=== PATIENT | female | born 1995 | race Caucasian/White ===

== ENCOUNTER 2017-05-30 17:32 | Emergency (ER) | payer BC, MEDICAID ==
[2017-05-30] MEDS ORDERED: Sodium Chloride 0.9% 10 ML Syringe FLUSH PRN (18:35)
[2017-05-30] MEDS ORDERED: Lactated Ringers 1,000 ML IV ONE (18:35)
--- NOTE | 2017-05-30 20:48 | EDM.PDOC ---
ED HPI GENERAL MEDICAL PROBLEM - General Chief Complaint: General Stated Complaint: PASSED OUT, 13 WEEKS PREG Time Seen by Provider: 05/30/17 18:15 Source of Information: Reports: Patient History Limitations: Reports: No Limitations - History of Present Illness INITIAL COMMENTS - FREE TEXT/NARRATIVE: 21 year old female presents for evaluation and treatment following a syncopal episode. Syncopal episode occurred about 2 hours prior to arrival in the ER. This episode was witnessed by her significant other. He states that was passed put for about 5 minutes. Significant other reports when she came to she was "shaky" and "twitchy". He questions if she had a seizure. Patient reports she remembers feeling lightheaded prior to the syncopal episode. She was talking to her significant other at the time. She felt lightheaded and noted increased salivation and vision changes prior to the episode. She did not hit her head as he was able to guide her to the ground. She states while she was "out" she could hear what was going on around her but could not respond. She reports memory loss associated with the event. States this has happened to her on several occasions. Last incident was in August. Reports after the August episode her speech was different for a couple of days, this resolved on its own. She has never seen neurology for the syncopal episodes. She states she has been having a migraine the last few days and felt hot/ feverish but has not taken her temp. No chest pain or shortness of breath. Patient is approximately 13 weeks . She is a . Reports she did have syncopal episodes with her previous . She recently relocated to [place] from [place]. She has seen OB in [place] and has a ob in [place] picked out but has not yet seen her. Reports she had an early Ob ultrasound in [place] due to having complications with her first . Reports she dilated around 24 wks with her first and was on bed rest. Baby was born full term. With this has had a little bit of cramping but no vaginal bleeding. She has been nauseated and has vomiting about 5 times a day. She has been attempting to control this with zofran from her previous . Also reports a decreased appetite. She is unsure of her blood type but states she has never received rhogram before. Generalized Pain Score (Numeric/FACES): 4 - Related Data Allergies Allergy/AdvReac Type Severity Reaction Status Date / Time acetaminophen [From Vicodin] Allergy Hives Verified 05/30/17 17:56 hydrocodone [From Vicodin] Allergy Hives Verified 05/30/17 17:56 morphine Allergy Hives Verified 05/30/17 17:56 Home Meds: Home Meds . [No Known Home Meds] 05/30/17 [History] Past Medical History HEENT History: Reports: None Cardiovascular History: Reports: Arrhythmia Gastrointestinal History: Reports: None Genitourinary History: Reports: Renal Calculus [employer] History: Reports: Neurological History: Reports: Migraines, Seizure Other Neuro History: pediatric seizures Psychiatric History: Reports: Anxiety, Dementia - Past Surgical History HEENT Surgical History: Reports: Adenoidectomy, Tonsillectomy Cardiovascular Surgical History: Reports: None GI Surgical History: Reports: Cholecystectomy Female Surgical History: Reports: Kidney stone extraction, Other (See Below) Other Female Surgeries/Procedures: shockwave lithotripsy Neurological Surgical History: Reports: None Social & Family History - Family History Family Medical History: Noncontributory - Tobacco Use Smoking Status *Q: Never Smoker Second Hand Smoke Exposure: No - Caffeine Use Caffeine Use: Reports: None - Recreational Drug Use Recreational Drug Use: No ED ROS GENERAL - Review of Systems Review Of Systems: See Below Constitutional: Reports: Fever (feels hot and feverish but has not taken a temp) HEENT: Reports: Vision Change (prior to syncopal episode "tunnel vision") Respiratory: Denies: Shortness of Breath Cardiovascular: Denies: Chest Pain GI/Abdominal: Reports: Abdominal Pain (reports some minor lower abdominal cramping), Nausea, Vomiting : Reports: Other (no vaginal bleeding). Denies: Dysuria Neurological: Reports: Headache (x3 days), Syncope, Other (amnesia with syncopal episode) ED EXAM, GENERAL - Physical Exam Exam: See Below Exam Limited By: No Limitations General Appearance: Alert, WD/WN, No Apparent Distress Eye Exam: Bilateral Eye: EOMI, Normal Inspection, PERRL Ears: Normal External Exam Nose: Normal Inspection Throat/Mouth: Normal Inspection, Normal Lips, Normal Voice, No Airway Compromise Head: Atraumatic, Normocephalic Neck: Normal Inspection, Supple, Non-Tender, Full Range of Motion Respiratory/Chest: No Respiratory Distress, Lungs Clear, Normal Breath Sounds Cardiovascular: Normal Peripheral Pulses, Regular Rate, Rhythm, No Murmur GI/Abdominal: Normal Bowel Sounds, Soft, Non-Tender (Female) Exam: Other ( heart tones in the 140s) Neurological: Alert, Oriented, CN II-XII Intact, Normal Cognition, Normal Gait, Other (GCS 15). No: Confused, Disoriented, Slow to Respond Psychiatric: Normal Affect, Normal Mood Skin Exam: Warm, Dry, Normal Color Course - Vital Signs Last Recorded V/S: Last Vital Signs Temp 36.3 C 05/30/17 17:56 Pulse 73 05/30/17 21:00 Resp 16 05/30/17 21:00 BP 103/58 L 05/30/17 21:00 Pulse Ox 100 05/30/17 21:00 - Orders/Labs/Meds Labs: Laboratory Tests 05/30/17 05/30/17 05/30/17 Range/Units 18:38 18:38 19:00 WBC 9.02 (3.98-10.04) K/mm3 RBC 4.42 (3.98-5.22) M/mm3 Hgb 13.5 (11.2-15.7) gm/L Hct 39.1 (34.1-44.9) % MCV 88.5 (79.4-94.8) fl MCH 30.5 (25.6-32.2) pg MCHC 34.5 (32.2-35.5) g/dl RDW Std Deviation 41.3 (36.4-46.3) fL Plt Count 167 L (182-369) K/mm3 MPV 10.6 (9.4-12.3) fl Neut % (Auto) 81.1 H (34.0-71.1) % Lymph % (Auto) 13.0 L (19.3-51.7) % [place] % (Auto) 5.1 (4.7-12.5) % Eos % (Auto) 0.6 L (0.7-5.8) Baso % (Auto) 0.1 (0.1-1.2) % Neut # (Auto) 7.32 H (1.56-6.13) K/mm3 Lymph # (Auto) 1.17 L (1.18-3.74) K/mm3 [place] # (Auto) 0.46 H (0.24-0.36) K/mm3 Eos # (Auto) 0.05 (0.04-0.36) K/mm3 Baso # (Auto) 0.01 (0.01-0.08) K/mm3 Sodium 137 (136-145) mEq/L Potassium 3.7 (3.5-5.1) mEq/L Chloride 103 (98-107) mEq/L Carbon Dioxide 23 (21-32) mEq/L Anion Gap 14.7 (5-15) BUN 6 L (7-18) mg/dL Creatinine 0.7 (0.55-1.02) mg/dL Est Cr Clr Drug Dosing 95.93 mL/min Estimated GFR (MDRD) > 60 (>60) mL/min BUN/Creatinine Ratio 8.6 L (14-18) Glucose 90 (74-106) mg/dL Calcium 9.6 (8.5-10.1) mg/dL Total Bilirubin 0.2 (0.2-1.0) mg/dL AST 14 L (15-37) U/L ALT 17 (14-59) U/L Alkaline Phosphatase 67 (46-116) U/L Total Protein 7.5 (6.4-8.2) g/dl Albumin 3.8 (3.4-5.0) g/dl Globulin 3.7 gm/dL Albumin/Globulin Ratio 1.0 (1-2) Urine Color Yellow (Yellow) Urine Appearance Clear (Clear) Urine pH 6.0 (5.0-8.0) Ur Specific [place] > or = 1.030 (1.005-1.030) Urine Protein Negative (Negative) Urine Glucose (UA) Negative (Negative) Urine Ketones Negative (Negative) Urine Occult Blood Negative (Negative) Urine Nitrite Negative (Negative) Urine Bilirubin Negative (Negative) Urine Urobilinogen 1.0 (0.2-1.0) Ur Leukocyte Esterase Negative (Negative) Urine RBC 0-5 (0-5) /hpf Urine WBC 0-5 (0-5) /hpf Ur Epithelial Cells 0-5 (0-5) /hpf Urine Bacteria Few (FEW) /hpf Urine Mucus Few (FEW) /hpf Meds: Medications Discontinued Medications Generic Name Dose Route Start Last Admin Trade Name Freq PRN Reason Stop Dose Admin Lactated Ringer's 1,000 mls @ 999 mls/hr 05/30/17 18:35 05/30/17 18:42 Ringers, Lactated IV 05/30/17 19:35 999 mls/hr .BOLUS ONE Administration Sodium Chloride 10 ml 05/30/17 18:35 05/30/17 18:43 Saline Flush FLUSH 10 ml ASDIRECTED PRN Administration Keep Vein Open - Re-Assessments/Exams Free Text/Narrative Re-Assessment/Exam: 05/30/17 20:44 Labs returned. I reviewed the lab results with the patient. heart tones in the 140s- 150s. She is not orthostatic. I feel this is likely a vasovagal episode given her history and PE. I do not see any reason for imaging today. I will discharge her home. Discharge instructions as documented. Departure - Departure Time of Disposition: 20:44 Disposition: Home, Self-Care 01 Condition: Good Clinical Impression: , Vasovagal episode - Discharge Information Instructions: Vasovagal Syncope, Adult Referrals: PCP,None [Primary Care Provider] - Kelsi Rodriguez MD [Physician] - Forms: ED Department Discharge Additional Instructions: Continue with your current plan of care and see OB as planned. make sure your ar drinking plenty of fluids. Drink at least half of her body weight and ounces of fluid every day. For you this is at least 60 ounces of fluid a day. Make sure when you are standing for prolonged periods times bend your knee but try to avoid standing for prolonged periods. Also be careful in the heat. Make sure you drink fluids and avoid heat if possible. Topical Phenergan given as needed for nausea. Apply a small amount to the wrist 4 times a day. This medication needs to be specially compounded. The compounding pharmacy is [facility]. Please call [phone] for any questions. Please return to the ER if your symptoms change or worsen.
[2017-05-30 21:04] VITALS: BP 103/58
== END 2017-05-30 21:00 | disposition home or self-care (01) ==
LOC: JD.ED 17:32
DX: O99.89 Other specified diseases and conditions complicating pregnancy, childbirth and the puerperium (principal); R55 Syncope and collapse; O99.351 Diseases of the nervous system complicating pregnancy, first trimester; F03.90 Unspecified dementia, unspecified severity, without behavioral disturbance, psychotic disturbance, mood disturbance, and anxiety; O99.341 Other mental disorders complicating pregnancy, first trimester; F41.9 Anxiety disorder, unspecified; Z3A.13 13 weeks gestation of pregnancy; Z88.5 Allergy status to narcotic agent; Z87.442 Personal history of urinary calculi; Z90.49 Acquired absence of other specified parts of digestive tract; Z98.890 Other specified postprocedural states
CPT/HCPCS: 36415; 80053; 81001; 85025; 96360; 99284; J7050; J7120; 99283

== ENCOUNTER 2017-11-30 06:39 | Inpatient (IN) | payer MEDICAID ==
[2017-11-30] MEDS ORDERED: Lactated Ringers 1,000 ML ONE (07:32)
[2017-11-30] MEDS ORDERED: Sodium Chloride 0.9% 10 ML Syringe FLUSH PRN (07:33)
[2017-11-30] MEDS ORDERED: Ondansetron 4 MG/2 ML SDV IVPUSH PRN (07:33)
[2017-11-30] MEDS ORDERED: Ampicillin 2 GM in Sodium Chloride 0.9% 100 ML IV ONE (07:33)
[2017-11-30] MEDS ORDERED: Nalbuphine 20 MG/1 ML Amp IVPUSH PRN (07:33)
[2017-11-30] MEDS: Lactated Ringers 1,000 ML IV SCH ×2 (07:38→12:38)
[2017-11-30] MEDS ORDERED: Oxytocin/Lactated Ringers 10 UNIT/1,000 ML BAG IV SCH ×2 (07:45)
[2017-11-30] MEDS: Ampicillin 1 GM in Sodium Chloride 0.9% 100 ML IV SCH ×2 (11:24→16:38)
[2017-11-30] MEDS ORDERED: diphenhydrAMINE 50 MG/ML SDV IVPUSH PRN (11:34)
[2017-11-30] MEDS ORDERED: fentaNYL 100 MCG/2 ML SDV EPIDUR PRN (11:34)
[2017-11-30] MEDS ORDERED: ePHEDrine 50 MG/ML SDV IVPUSH PRN (11:34)
--- NOTE | 2017-11-30 11:41 | PCM.PREANE ---
Preanesthetic Assessment - Anesthesia/Transfusion/Family Hx Anesthesia History: Prior Anesthesia Without Reaction Family History of Anesthesia Reaction: No Transfusion History: No Prior Transfusion(s) Intubation History: Unknown - Review of Systems General: No Symptoms Pulmonary: No Symptoms Cardiovascular: No Symptoms Gastrointestinal: No Symptoms Neurological: No Symptoms Other: Reports: None - Physical Assessment NPO Status Date: 11/30/17 NPO Status Time: 09:00 Pulse: 83 Respiratory Rate: 18 Blood Pressure: 135/95 Vital Signs: Last Vital Signs Temp 36.8 C 11/30/17 07:19 Pulse 81 11/30/17 07:19 Resp 18 11/30/17 07:19 BP 123/92 H 11/30/17 07:19 Pulse Ox Height: 1.55 m Weight: 74.253 kg ASA Class: 2 Mental Status: Alert & Oriented x3 Airway Class: Mallampati = 1 Dentition: Reports: Normal Dentition Thyro-Mental Finger Breadths: 3 Mouth Opening Finger Breadths: 5 ROM/Head Extension: Full Lungs: Clear to Auscultation, Normal Respiratory Effort Cardiovascular: Regular Rate, Regular Rhythm - Lab Values: Laboratory Last Values WBC 9.66 K/mm3 (3.98-10.04) 11/30/17 08:10 RBC 3.78 M/mm3 (3.98-5.22) L 11/30/17 08:10 Hgb 11.1 gm/L (11.2-15.7) L 11/30/17 08:10 Hct 33.4 % (34.1-44.9) L 11/30/17 08:10 MCV 88.4 fl (79.4-94.8) 11/30/17 08:10 MCH 29.4 pg (25.6-32.2) 11/30/17 08:10 MCHC 33.2 g/dl (32.2-35.5) 11/30/17 08:10 RDW Std Deviation 40.8 fL (36.4-46.3) 11/30/17 08:10 Plt Count 135 K/mm3 (182-369) L 11/30/17 08:10 MPV 11.7 fl (9.4-12.3) 11/30/17 08:10 Blood Type O POSITIVE 11/30/17 08:10 Gel Antibody Screen Negative 11/30/17 08:10 - Allergies Allergies/Adverse Reactions: Allergies Allergy/AdvReac Type Severity Reaction Status Date / Time hydrocodone [From Vicodin] Allergy Hives Verified 11/30/17 07:32 morphine Allergy Hives Verified 11/30/17 07:32 - Blood Blood Available: Yes Product(s) Available: PRBC - Acknowledgements Anesthesia Type Planned: Epidural Pt an Appropriate Candidate for the Planned Anesthesia: Yes Alternatives and Risks of Anesthesia Discussed w Pt/Guardian: Yes Pt/Guardian Understands and Agrees with Anesthesia Plan: Yes PreAnesthesia Questionnaire HEENT History: Reports: None Cardiovascular History: Reports: Arrhythmia (? sinus arrhythmia, history of syncope with this being watched by cardiology) Gastrointestinal History: Reports: None Genitourinary History: Reports: Renal Calculus [employer] History: Reports: (39 weeks) : 2 Para: 1 Neurological History: Reports: Seizure (when 2 years old, not on meds currently) Other Neuro History: pediatric seizures Psychiatric History: Reports: Anxiety, Depression - Past Surgical History HEENT Surgical History: Reports: Adenoidectomy, Tonsillectomy Cardiovascular Surgical History: Reports: None GI Surgical History: Reports: Cholecystectomy Female Surgical History: Reports: Kidney stone extraction, Other (See Below) Other Female Surgeries/Procedures: shockwave lithotripsy - SUBSTANCE USE Smoking Status *Q: Never Smoker Second Hand Smoke Exposure: Yes Recreational Drug Use History: No - HOME MEDS Home Medications: Home Meds Vits #93/Iron Fum/FA [ Formula Tablet] 11/30/17 [History] Sertraline [Zoloft] 50 mg PO BEDTIME 11/30/17 [History] - CURRENT (IN HOUSE) MEDS Current Meds: Current Medications Diphenhydramine HCl (Benadryl) 25 mg IVPUSH Q6H PRN PRN Reason: pruritis Ephedrine Sulfate (Ephedrine Sulfate) 5 mg IVPUSH ASDIRECTED PRN PRN Reason: Hypotension Fentanyl (Sublimaze) 100 mcg EPIDUR Q3H PRN PRN Reason: Pain Fentanyl/Bupivacaine HCl (Fentanyl/Bupivacaine/Ns 2 Mcg-0.125% 100 Ml) 100 ml EPIDUR ASDIRECTED MORALES Ampicillin Sodium 1 gm/ Sodium (Chloride) 100 mls @ 200 mls/hr IV Q4H [facility] Last Admin: 11/30/17 11:24 Dose: 200 mls/hr Lactated Ringer's (Ringers, Lactated) 1,000 mls @ 40 mls/hr IV ASDIRECTED MORALES Last Infusion: 11/30/17 08:03 Dose: 40 mls/hr Oxytocin/Lactated Ringer's (Pitocin In Lr 10 Units/1,000 Ml) 10 unit in 1,000 mls @ 12 mls/hr IV TITRATE MORALES; 2 MUNITS/MIN PRN Reason: Protocol Last Titration: 11/30/17 10:25 Dose: 6 munits/min, 36 mls/hr Oxytocin/Lactated Ringer's (Pitocin In Lr 10 Units/1,000 Ml) 10 unit in 1,000 mls @ 500 mls/hr IV .CONTINUOUS MORALES Nalbuphine HCl (Nubain) 10 mg IVPUSH Q2H PRN PRN Reason: Pain (moderate 4-6) Ondansetron HCl (Zofran) 4 mg IVPUSH Q4H PRN PRN Reason: Nausea/Vomiting Sodium Chloride (Saline Flush) 10 ml FLUSH ASDIRECTED PRN PRN Reason: Keep Vein Open Discontinued Medications Lactated Ringer's (Ringers, Lactated) Confirm Administered Dose 1,000 mls @ as directed .ROUTE .STK-MED ONE Stop: 11/30/17 07:33 Last Admin: 11/30/17 07:50 Dose: Not Given Ampicillin Sodium 2 gm/ Sodium (Chloride) 100 mls @ 200 mls/hr IV ONETIME ONE Stop: 11/30/17 08:02 Last Admin: 11/30/17 07:38 Dose: 200 mls/hr
[2017-11-30] MEDS ORDERED: Bupivacaine/fentaNYL/NS 100 ML Bag EPIDUR SCH (11:45)
--- NOTE | 2017-11-30 13:42 | PCM.LDHP ---
L&D History of Present Illness - General Date of Service: 11/30/17 Admit Problem/Dx: Patient Status Order with Admit Dx/Problem 11/30/17 07:34 Patient Status [ADT] Routine Admission Diagnosis/Problem Admission Diagnosis/Problem Normal Source of Information: Patient History Limitations: Reports: No Limitations - History of Present Illness Introduction:: Patient is a 22-year-old 001 at 39-0/7 weeks gestation who presents for induction of labor due to living about 1.5 hours from the hospital. Doing well since last seen. Notes good movement. No signs or symptoms of labor Pain Score: 10 - Related Data Allergies/Adverse Reactions: Allergies Allergy/AdvReac Type Severity Reaction Status Date / Time hydrocodone [From Vicodin] Allergy Hives Verified 11/30/17 07:32 morphine Allergy Hives Verified 11/30/17 07:32 Home Medications: Home Meds Vits #93/Iron Fum/FA [ Formula Tablet] 11/30/17 [History] Sertraline [Zoloft] 50 mg PO BEDTIME 11/30/17 [History] Past Medical History Genitourinary History: Reports: Renal Calculus [employer] History: Reports: : 2 Para: 1 LMP (Approximate): Neurological History: Reports: Seizure (when 2 years old, not on meds currently) Other Neuro History: pediatric seizures Psychiatric History: Reports: Anxiety, Depression - Past Surgical History HEENT Surgical History: Reports: Adenoidectomy, Tonsillectomy GI Surgical History: Reports: Cholecystectomy Female Surgical History: Reports: Kidney stone extraction, Other (See Below) Other Female Surgeries/Procedures: shockwave lithotripsy Social & Family History - Family History Family Medical History: Noncontributory - Tobacco Use Smoking Status *Q: Never Smoker Second Hand Smoke Exposure: Yes - Caffeine Use Caffeine Use: Reports: None - Alcohol Use Alcohol Use History: No - Recreational Drug Use Recreational Drug Use: No H&P Review of Systems - Review of Systems: Review Of Systems: See Below General: Reports: No Symptoms HEENT: Reports: No Symptoms Pulmonary: Reports: No Symptoms Cardiovascular: Reports: No Symptoms Gastrointestinal: Reports: No Symptoms Genitourinary: Reports: No Symptoms Musculoskeletal: Reports: No Symptoms L&D Exam - Exam Exam: See Below - Vital Signs Vital Signs: Last Vital Signs Temp 36.8 C 11/30/17 07:19 Pulse 83 11/30/17 11:40 Resp 18 11/30/17 11:40 BP 135/95 H 11/30/17 11:40 Pulse Ox Weight: 74.253 kg - OB Specific Contraction Intensity: Irritability Movement: Active Heart Tones: Present Heart Tones per Min: 140 Heart Rate (FHR) Variability: Moderate (6-25 bmp) Presentation: Vertex - Urias Score Urias Score Cervix Position: Posterior Urias Score Consistency: Soft Urias Score Effacement: 51-70% Urias Score Dilation: 1-2 cm Urias Score Infant's Station: -2 Urias Score Total: 6 - Exam General: Alert, Oriented, Cooperative Lungs: Clear to Auscultation, Normal Respiratory Effort Cardiovascular: Regular Rate, Regular Rhythm GI/Abdominal Exam: Soft, Non-Tender Genitourinary: Normal external exam Back Exam: Normal Inspection Extremities: Normal Inspection - Patient Data Lab Results Last 24 hrs: Laboratory Results - last 24 hr 11/30/17 11/30/17 Range/Units 08:10 08:10 WBC 9.66 (3.98-10.04) K/mm3 RBC 3.78 L (3.98-5.22) M/mm3 Hgb 11.1 L (11.2-15.7) gm/L Hct 33.4 L (34.1-44.9) % MCV 88.4 (79.4-94.8) fl MCH 29.4 (25.6-32.2) pg MCHC 33.2 (32.2-35.5) g/dl RDW Std Deviation 40.8 (36.4-46.3) fL Plt Count 135 L (182-369) K/mm3 MPV 11.7 (9.4-12.3) fl Blood Type O POSITIVE Gel Antibody Screen Negative Result Diagrams: 11/30/17 08:10 - Problem List (1) 39 weeks gestation of SNOMED Code(s): 37751802 ICD Code: Z3A.39 - 39 WEEKS GESTATION OF Status: Acute Current Visit: Yes Problem List Initiated/Reviewed/Updated: Yes Orders Last 24hrs: Active Orders 24 hr Category Date Time Status Patient Status [ADT] Routine ADT 11/30/17 07:34 Active Activity as Tolerated [RC] PFP Care 11/30/17 07:33 Active Bradycardia-Neuroaxis [employer] [RC] ROUTINE Care 11/30/17 11:35 Active Communication Order [RC] ASDIRECTED Care 11/30/17 07:33 Active Communication Order [RC] ASDIRECTED Care 11/30/17 07:33 Active Communication Order [RC] ASDIRECTED Care 11/30/17 07:33 Active Heart Tones [RC] ASDIRECTED Care 11/30/17 07:34 Active Monitoring [RC] INTERMITTENT Care 11/30/17 07:33 Active Hypertension-Neuroaxis [employer] [RC] ROUTINE Care 11/30/17 11:35 Active Hypotension-Neuroaxis [employer] [RC] ROUTINE Care 11/30/17 11:35 Active Insert Spencer Catheter [Insert Urinary Catheter] [OM.PC] Care 11/30/17 12:45 Ordered Q24H Notify Provider [RC] ASDIRECTED Care 11/30/17 07:33 Active Notify Provider [RC] ASDIRECTED Care 11/30/17 11:33 Active Notify Provider [RC] PFP Care 11/30/17 07:33 Active Notify Provider [RC] PRN Care 11/30/17 07:33 Active Oxygen Therapy [RC] ASDIRECTED Care 11/30/17 11:33 Active Peripheral IV Care [RC] . DIRECTED Care 11/30/17 07:34 Active Pulse Oximetry [RC] ASDIRECTED Care 11/30/17 11:35 Active Up ad Tram [RC] ASDIRECTED Care 11/30/17 07:34 Active Urinary Catheter Assessment [RC] ASDIRECTED Care 11/30/17 12:45 Active Vaginal Exam [RC] ASDIRECTED Care 11/30/17 07:33 Active Vital Signs [RC] ASDIRECTED Care 11/30/17 07:33 Active Regular Diet [DIET] Diet 11/30/17 Breakfast Active PATIENT RETYPE [BBK] Routine Lab 11/30/17 08:10 Results TYPE AND SCREEN [BBK] Routine Lab 11/30/17 08:10 Results Ampicillin 1 gm Med 11/30/17 11:30 Active Sodium Chloride 0.9% [Normal Saline] 100 ml IV Q4H Bupivacaine/fentaNYL/NS [fentaNYL/Bupivacaine/NS 2 MCG- Med 11/30/17 11:45 Active 0.125% 100 ML] 100 ml EPIDUR ASDIRECTED Lactated Ringers [Ringers, Lactated] 1,000 ml Med 11/30/17 07:45 Active IV ASDIRECTED Nalbuphine [Nubain] Med 11/30/17 07:33 Active 10 mg IVPUSH Q2H PRN Ondansetron [Zofran] Med 11/30/17 07:33 Active 4 mg IVPUSH Q4H PRN Oxytocin/Lactated Ringers [Pitocin in LR 10 Units/1,000 Med 11/30/17 07:45 Active ML] 10 unit in 1,000 ml IV .CONTINUOUS Oxytocin/Lactated Ringers [Pitocin in LR 10 Units/1,000 Med 11/30/17 07:45 Active ML] 10 unit in 1,000 ml IV TITRATE Sodium Chloride 0.9% [Saline Flush] Med 11/30/17 07:33 Active 10 ml FLUSH ASDIRECTED PRN diphenhydrAMINE [Benadryl] Med 11/30/17 11:34 Active 25 mg IVPUSH Q6H PRN ePHEDrine [ePHEDrine Sulfate] Med 11/30/17 11:34 Active 5 mg IVPUSH ASDIRECTED PRN fentaNYL [Sublimaze] Med 11/30/17 11:34 Active 100 mcg EPIDUR Q3H PRN Electronic Heart Tones Ext w TOCO [WOMSER] Oth 11/30/17 07:33 Ordered Routine Electronic Heart Tones Internal [WOMSER] Per Unit Oth 11/30/17 07:33 Ordered Routine Peripheral IV Insertion Adult [OM.PC] Routine Oth 11/30/17 07:33 Ordered Resuscitation Status Routine Resus Stat 11/30/17 07:33 Ordered Medication Orders Diphenhydramine HCl (Benadryl) 25 mg IVPUSH Q6H PRN PRN Reason: pruritis Ephedrine Sulfate (Ephedrine Sulfate) 5 mg IVPUSH ASDIRECTED PRN PRN Reason: Hypotension Fentanyl (Sublimaze) 100 mcg EPIDUR Q3H PRN PRN Reason: Pain Last Admin: 11/30/17 12:11 Dose: 100 mcg Fentanyl/Bupivacaine HCl (Fentanyl/Bupivacaine/Ns 2 Mcg-0.125% 100 Ml) 100 ml EPIDUR ASDIRECTED MORALES Last Admin: 02/09/18 12:12 Dose: 100 ml Ampicillin Sodium 1 gm/ Sodium (Chloride) 100 mls @ 200 mls/hr IV Q4H MORALES Last Admin: 11/30/17 11:24 Dose: 200 mls/hr Lactated Ringer's (Ringers, Lactated) 1,000 mls @ 40 mls/hr IV ASDIRECTED MORALES Last Admin: 11/30/17 12:38 Dose: 40 mls/hr Infusion: 11/30/17 12:38 Dose: 40 mls/hr Infusion: 11/30/17 08:03 Dose: 40 mls/hr Infusion: 11/30/17 07:51 Dose: 0 mls/hr Admin: 11/30/17 07:38 Dose: 40 mls/hr Oxytocin/Lactated Ringer's (Pitocin In Lr 10 Units/1,000 Ml) 10 unit in 1,000 mls @ 12 mls/hr IV TITRATE MORALES; 2 MUNITS/MIN PRN Reason: Protocol Last Titration: 11/30/17 10:25 Dose: 6 munits/min, 36 mls/hr Titration: 11/30/17 09:05 Dose: 4 munits/min, 24 mls/hr Admin: 11/30/17 08:03 Dose: 2 munits/min, 12 mls/hr Oxytocin/Lactated Ringer's (Pitocin In Lr 10 Units/1,000 Ml) 10 unit in 1,000 mls @ 500 mls/hr IV .CONTINUOUS MORALES Nalbuphine HCl (Nubain) 10 mg IVPUSH Q2H PRN PRN Reason: Pain (moderate 4-6) Ondansetron HCl (Zofran) 4 mg IVPUSH Q4H PRN PRN Reason: Nausea/Vomiting Sodium Chloride (Saline Flush) 10 ml FLUSH ASDIRECTED PRN PRN Reason: Keep Vein Open Assessment/Plan Comment:: Patient is a 22-year-old 001 at 39-0/7 weeks gestation who presents for elective induction of labor given living 1.5 hours from the hospital * CBC and type and screen * GBS positive, will start ampicillin on admission * Pitocin for induction with AROM once 2 doses of antibiotics received * Pain management per patient preference * Anticipate
--- NOTE | 2017-11-30 13:44 | PCM.PNLD ---
Labor Progress Note - VS & Meds Vital Signs: Last Vital Signs Temp 36.8 C 11/30/17 07:19 Pulse 83 11/30/17 11:40 Resp 18 11/30/17 11:40 BP 135/95 H 11/30/17 11:40 Pulse Ox Active Medications: Current Medications Diphenhydramine HCl (Benadryl) 25 mg IVPUSH Q6H PRN PRN Reason: pruritis Ephedrine Sulfate (Ephedrine Sulfate) 5 mg IVPUSH ASDIRECTED PRN PRN Reason: Hypotension Fentanyl (Sublimaze) 100 mcg EPIDUR Q3H PRN PRN Reason: Pain Last Admin: 11/30/17 12:11 Dose: 100 mcg Fentanyl/Bupivacaine HCl (Fentanyl/Bupivacaine/Ns 2 Mcg-0.125% 100 Ml) 100 ml EPIDUR ASDIRECTED MORALES Last Admin: 11/30/17 12:12 Dose: 100 ml Ampicillin Sodium 1 gm/ Sodium (Chloride) 100 mls @ 200 mls/hr IV Q4H MORALES Last Admin: 11/30/17 11:24 Dose: 200 mls/hr Lactated Ringer's (Ringers, Lactated) 1,000 mls @ 40 mls/hr IV ASDIRECTED MORALES Last Admin: 11/30/17 12:38 Dose: 40 mls/hr Oxytocin/Lactated Ringer's (Pitocin In Lr 10 Units/1,000 Ml) 10 unit in 1,000 mls @ 12 mls/hr IV TITRATE MORALES; 2 MUNITS/MIN PRN Reason: Protocol Last Titration: 11/30/17 10:25 Dose: 6 munits/min, 36 mls/hr Oxytocin/Lactated Ringer's (Pitocin In Lr 10 Units/1,000 Ml) 10 unit in 1,000 mls @ 500 mls/hr IV .CONTINUOUS MORALES Nalbuphine HCl (Nubain) 10 mg IVPUSH Q2H PRN PRN Reason: Pain (moderate 4-6) Ondansetron HCl (Zofran) 4 mg IVPUSH Q4H PRN PRN Reason: Nausea/Vomiting Sodium Chloride (Saline Flush) 10 ml FLUSH ASDIRECTED PRN PRN Reason: Keep Vein Open Discontinued Medications Lactated Ringer's (Ringers, Lactated) Confirm Administered Dose 1,000 mls @ as directed .ROUTE .STK-MED ONE Stop: 11/30/17 07:33 Last Admin: 11/30/17 07:50 Dose: Not Given Ampicillin Sodium 2 gm/ Sodium (Chloride) 100 mls @ 200 mls/hr IV ONETIME ONE Stop: 11/30/17 08:02 Last Admin: 11/30/17 07:38 Dose: 200 mls/hr - Uterine Contractions Uterine Monitoring Mode: External [place] Contraction Intensity: Mild to Moderate Uterine Resting Tone: Soft - Monitoring Monitor Mode: External Ultrasound Heart Rate (FHR) Baseline: 140 Heart Rate (FHR) Variability: Moderate (6-25 bmp) Accelerations: Present, 10x10 (=/<32 wks) Decelerations: None Strip Review: Category I - Vaginal Exam Dilation (cm): 2-3 Effacement (Percent): 70 Station: -1 Cervical Position: Midposition - Labor Progress (Free Text) Labor Progress: Doing well. On 6 of pitocin. AROM performed. Continue present management
[2017-11-30] MEDS ORDERED: Ammonia Inhalant Amp ONE (14:48)
--- NOTE | 2017-11-30 15:30 | PCM.DEL ---
L & D Note - General Info Date of Service: 11/30/17 - Delivery Note Labor: Induced by ARM, Induced by Oxytocin Delivery Outcome: Livebirth Infant Delivery Method: Spontaneous Vaginal Delivery-Single Infant Delivery Mode: Spontaneous Presentation: Left Occiput Anterior (MARY) Nuchal Cord: None Anesthesia Type: Epidural Amniotic Fluid Description: Clear Episiotomy Type: None Laceration: 2nd Degree, Labial Suture type: Vicryl Suture size: 2-0 Placenta: Intact, Spontaneous Cord: 3 Vessels Estimated Blood Loss: 300 Resuscitation Needed: Yes [place]: Suctioned, Bulb Syringe, Stimulated, Warmed, [place] Used Score 1 min: 9 Score 5 min: 9 Delivery Comments (Free Text/Narrative):: Patient found to be complete and began pushing. With maternal pushing effort head delivered from an MARY presentation. No nuchal cord present. With gentle downward traction the shoulders and body delivered. placed on maternal abdomen. Cord clamped and cut. Cord blood obtained. Placenta then expelled intact. Inspection of the perineum showed a right labial laceration. This was repaired with a 2-0 vicryl in the typical fashion. - Patient Data Vitals - Most Recent: Last Vital Signs Temp 36.8 C 11/30/17 07:19 Pulse 83 11/30/17 11:40 Resp 18 11/30/17 11:40 BP 135/95 H 11/30/17 11:40 Pulse Ox Weight - Most Recent: 74.253 kg I&O - Last 24 Hours: Intake & Output 11/30/17 11/30/17 11/30/17 06:59 14:59 22:59 Intake Total 1320 750 Balance 1320 750 Lab Results Last 24 Hours: Laboratory Results - last 24 hr 11/30/17 11/30/17 Range/Units 08:10 08:10 WBC 9.66 (3.98-10.04) K/mm3 RBC 3.78 L (3.98-5.22) M/mm3 Hgb 11.1 L (11.2-15.7) gm/L Hct 33.4 L (34.1-44.9) % MCV 88.4 (79.4-94.8) fl MCH 29.4 (25.6-32.2) pg MCHC 33.2 (32.2-35.5) g/dl RDW Std Deviation 40.8 (36.4-46.3) fL Plt Count 135 L (182-369) K/mm3 MPV 11.7 (9.4-12.3) fl Blood Type O POSITIVE Gel Antibody Screen Negative Med Orders - Current: Current Medications Diphenhydramine HCl (Benadryl) 25 mg IVPUSH Q6H PRN PRN Reason: pruritis Ephedrine Sulfate (Ephedrine Sulfate) 5 mg IVPUSH ASDIRECTED PRN PRN Reason: Hypotension Fentanyl (Sublimaze) 100 mcg EPIDUR Q3H PRN PRN Reason: Pain Last Admin: 11/30/17 12:11 Dose: 100 mcg Fentanyl/Bupivacaine HCl (Fentanyl/Bupivacaine/Ns 2 Mcg-0.125% 100 Ml) 100 ml EPIDUR ASDIRECTED MORALES Last Admin: 11/30/17 12:12 Dose: 100 ml Ampicillin Sodium 1 gm/ Sodium (Chloride) 100 mls @ 200 mls/hr IV Q4H MORALES Last Admin: 11/30/17 11:24 Dose: 200 mls/hr Lactated Ringer's (Ringers, Lactated) 1,000 mls @ 40 mls/hr IV ASDIRECTED MORALES Last Admin: 11/30/17 12:38 Dose: 40 mls/hr Oxytocin/Lactated Ringer's (Pitocin In Lr 10 Units/1,000 Ml) 10 unit in 1,000 mls @ 12 mls/hr IV TITRATE MORALES; 2 MUNITS/MIN PRN Reason: Protocol Last Titration: 11/30/17 14:51 Dose: 0 munits/min, 0 mls/hr Oxytocin/Lactated Ringer's (Pitocin In Lr 10 Units/1,000 Ml) 10 unit in 1,000 mls @ 500 mls/hr IV .CONTINUOUS MORALES Nalbuphine HCl (Nubain) 10 mg IVPUSH Q2H PRN PRN Reason: Pain (moderate 4-6) Ondansetron HCl (Zofran) 4 mg IVPUSH Q4H PRN PRN Reason: Nausea/Vomiting Last Admin: 11/30/17 14:10 Dose: 4 mg Sodium Chloride (Saline Flush) 10 ml FLUSH ASDIRECTED PRN PRN Reason: Keep Vein Open Discontinued Medications Ammonia (Aromatic Spirit) (Ammonia Aromatic Inhalant) Confirm Administered Dose 1 ampule .ROUTE .STK-MED ONE Stop: 11/30/17 14:49 Lactated Ringer's (Ringers, Lactated) Confirm Administered Dose 1,000 mls @ as directed .ROUTE .STK-MED ONE Stop: 11/30/17 07:33 Last Admin: 11/30/17 07:50 Dose: Not Given Ampicillin Sodium 2 gm/ Sodium (Chloride) 100 mls @ 200 mls/hr IV ONETIME ONE Stop: 11/30/17 08:02 Last Admin: 11/30/17 07:38 Dose: 200 mls/hr - Problem List & Annotations (1) 39 weeks gestation of SNOMED Code(s): 81059703 Code(s): Z3A.39 - 39 WEEKS GESTATION OF Status: Acute Current Visit: Yes (2) Vaginal delivery SNOMED Code(s): 015001196 Code(s): O80 - ENCOUNTER FOR FULL-TERM UNCOMPLICATED DELIVERY Status: Acute Current Visit: Yes - Problem List Review Problem List Initiated/Reviewed/Updated: Yes - My Orders Last 24 Hours: My Active Orders 11/30/17 07:33 Activity as Tolerated [RC] PFP Communication Order [RC] ASDIRECTED Communication Order [RC] ASDIRECTED Communication Order [RC] ASDIRECTED Monitoring [RC] INTERMITTENT Notify Provider [RC] ASDIRECTED Notify Provider [RC] PFP Notify Provider [RC] PRN Vaginal Exam [RC] ASDIRECTED Vital Signs [RC] ASDIRECTED Nalbuphine [Nubain] 10 mg IVPUSH Q2H PRN Ondansetron [Zofran] 4 mg IVPUSH Q4H PRN Sodium Chloride 0.9% [Saline Flush] 10 ml FLUSH ASDIRECTED PRN Electronic Heart Tones Ext w TOCO [WOMSER] Routine Electronic Heart Tones Internal [WOMSER] Per Unit Routine Peripheral IV Insertion Adult [OM.PC] Routine Resuscitation Status Routine 11/30/17 07:34 Patient Status [ADT] Routine Heart Tones [RC] ASDIRECTED Peripheral IV Care [RC] . DIRECTED Up ad Tram [RC] ASDIRECTED 11/30/17 07:45 Lactated Ringers [Ringers, Lactated] 1,000 ml IV ASDIRECTED Oxytocin/Lactated Ringers [Pitocin in LR 10 Units/1,000 ML] 10 unit in 1,000 ml IV .CONTINUOUS Oxytocin/Lactated Ringers [Pitocin in LR 10 Units/1,000 ML] 10 unit in 1,000 ml IV TITRATE 11/30/17 08:10 PATIENT RETYPE [BBK] Routine TYPE AND SCREEN [BBK] Routine 11/30/17 11:30 Ampicillin 1 gm Sodium Chloride 0.9% [Normal Saline] 100 ml IV Q4H 11/30/17 12:45 Insert [place] Catheter [Insert Urinary Catheter] [OM.PC] Q24H Urinary Catheter Assessment [RC] ASDIRECTED 11/30/17 Breakfast Regular Diet [DIET] - Assessment Assessment:: 22 y/o G2 now P2002 PPD#0 from at 39 0/7 wks - Plan Plan:: * Routine cares * Deciding between breast and bottle feeding * Discharge home in 1 day
[2017-11-30] MEDS ORDERED: Docusate Sodium 100 MG Cap PO PRN (15:40)
[2017-11-30] MEDS ORDERED: Witch Hazel Medicated Pads 100/Jar TOP PRN (15:40)
[2017-11-30] MEDS ORDERED: Lanolin 100% Cream 7 GM Tube TOP PRN (15:40)
[2017-11-30] MEDS ORDERED: Acetaminophen 325 MG Tab PO PRN (15:40)
[2017-11-30] MEDS ORDERED: Benzocaine/Menthol 20%-0.5% Spray 56 GM Canister TOP PRN (15:40)
[2017-11-30] MEDS: Ibuprofen 600 MG Tab PO PRN ×2 (16:30→21:57)
[2017-11-30] MEDS ORDERED: Sertraline 50 MG Tab PO SCH (21:00)
[2017-12-01] MEDS: Ibuprofen 600 MG Tab PO PRN ×2 (04:47→12:38)
--- NOTE | 2017-12-01 11:31 | PCM.SN ---
- Free Text/Narrative Note: Post Progress Note PPD # 1 Subjective: Doing well overall. Ambulating without difficulty. Lochia minimal. Voiding without difficulty. Tolerating regular diet without nausea or vomiting. Pain controlled with oral medications. Bottle feeding with minimal difficulty. Objective: Vitals: Physical Exam General: Alert and oriented, no acute distress Lungs: Clear to auscultation bilaterally Heart: Regular rate and rhythm Abdomen: Soft, minimal appropriate tenderness, non-distended, fundus midline, nontender, and below the umbilicus Extremities: Trace edema in bilateral lower extremities to ankles ASSESSMENT: 22-year-old female G 2 P 2001 s/p normal vaginal delivery PPD #1, complicated by history of anxiety and depression requiring Zoloft and mildly elevated blood pressures without symptoms of severe preeclampsia PLAN: Doing well Bottle feeding with minimal difficulty. Assist as needed Lochia minimal. Continue to monitor for appropriate lochia. Continue routine care Patient with history of anxiety and depression controlled with Zoloft. EPDS done in the hospital today was 12/01. Recommend for patient to continue on Zoloft. Mildly elevated blood pressures while in the hospital in the 120s to 130s/70s to 90s area and recommended for patient to have blood pressure check sometime this week in the clinic and follow up with her regular provider as needed. Anticipate discharge home today Jacques Keating MD 11:35 AM 12/01/2017
--- NOTE | 2017-12-01 11:45 | PCM.DCSUM1 ---
Discharge Summary - Hospital Course Free Text/Narrative:: - General Info Date of Service: 11/30/17 - Delivery Note Labor: Induced by ARM, Induced by Oxytocin Delivery Outcome: Livebirth Delivery Method: Spontaneous Vaginal Delivery-Single Infant Delivery Mode: Spontaneous Presentation: Left Occiput Anterior (MARY) Nuchal Cord: None Anesthesia Type: Epidural Amniotic Fluid Description: Clear Episiotomy Type: None Laceration: 2nd Degree, Labial Suture type: Vicryl Suture size: 2-0 Placenta: Intact, Spontaneous Cord: 3 Vessels Estimated Blood Loss: 300 Resuscitation Needed: Yes [place]: Suctioned, Bulb Syringe, Stimulated, Warmed, [place] Used Score 1 min: 9 Score 5 min: 9 Delivery Comments (Free Text/Narrative):: Patient found to be complete and began pushing. With maternal pushing effort head delivered from an MARY presentation. No nuchal cord present. With gentle downward traction the shoulders and body delivered. placed on maternal abdomen. Cord clamped and cut. Cord blood obtained. Placenta then expelled intact. Inspection of the perineum showed a right labial laceration. This was repaired with a 2-0 vicryl in the typical fashion. HPI Initial Comments: - General Info Date of Service: 11/30/17 - Delivery Note Labor: Induced by ARM, Induced by Oxytocin Delivery Outcome: Livebirth Delivery Method: Spontaneous Vaginal Delivery-Single Infant Delivery Mode: Spontaneous Presentation: Left Occiput Anterior (MARY) Nuchal Cord: None Anesthesia Type: Epidural Amniotic Fluid Description: Clear Episiotomy Type: None Laceration: 2nd Degree, Labial Suture type: Vicryl Suture size: 2-0 Placenta: Intact, Spontaneous Cord: 3 Vessels Estimated Blood Loss: 300 Resuscitation Needed: Yes : Suctioned, Bulb Syringe, Stimulated, Warmed, [place] Used Score 1 min: 9 Score 5 min: 9 Delivery Comments (Free Text/Narrative):: Patient found to be complete and began pushing. With maternal pushing effort head delivered from an MARY presentation. No nuchal cord present. With gentle downward traction the shoulders and body delivered. Infant placed on maternal abdomen. Cord clamped and cut. Cord blood obtained. Placenta then expelled intact. Inspection of the perineum showed a right labial laceration. This was repaired with a 2-0 vicryl in the typical fashion. Brief History: - General Info. Date of Service: 11/30/17. - Delivery Note. Labor: Induced by ARM, Induced by Oxytocin. Delivery Outcome: Livebirth. Delivery Method: Spontaneous Vaginal Delivery-Single. Delivery Mode: Spontaneous. Presentation: Left Occiput Anterior (MARY). Nuchal Cord: None. Anesthesia Type: Epidural. Amniotic Fluid Description: Clear. Episiotomy Type: None. Laceration: 2nd Degree, Labial. Suture type: Vicryl. Suture size: 2-0. Placenta: Intact, Spontaneous. Cord: 3 Vessels. Estimated Blood Loss: 300. Resuscitation Needed: Yes. : Suctioned, Bulb Syringe, Stimulated, Warmed, [place] Used. Score 1 min: 9. Score 5 min: 9. Delivery Comments (Free Text/Narrative):: Patient found to be complete and began pushing. With maternal pushing effort head delivered from an MARY presentation. No nuchal cord present. With gentle downward traction the shoulders and body delivered. placed on maternal abdomen. Cord clamped and cut. Cord blood obtained. Placenta then expelled intact. Inspection of the perineum showed a right labial laceration. This was repaired with a 2-0 vicryl in the typical fashion. - Discharge Data Discharge Date: 12/01/17 Discharge Disposition: Home, Self-Care 01 Condition: Good - Discharge Diagnosis/Problem(s) (1) Second degree laceration of perineum, delivered, current hospitalization SNOMED Code(s): 184193247 ICD Code: O70.1 - SECOND DEGREE PERINEAL LACERATION DURING DELIVERY Status : Acute Current Visit: Yes (2) Anxiety and depression SNOMED Code(s): 852244386 ICD Code: F41.8 - OTHER SPECIFIED ANXIETY DISORDERS Status: Acute Current Visit: Yes (3) 39 weeks gestation of SNOMED Code(s): 09723859 ICD Code: Z3A.39 - 39 WEEKS GESTATION OF Status: Acute Current Visit: Yes (4) Vaginal delivery SNOMED Code(s): 422128765 ICD Code: O80 - ENCOUNTER FOR FULL-TERM UNCOMPLICATED DELIVERY Status: Acute Current Visit: Yes - Patient Summary/Data Complications: Mildly elevated blood pressures without symptoms of preeclampsia Consults: None Hospital Course: Darlene Max was admitted for induction of labor. On admission her cervix was dilated to 1-2 cm. She was GBS positive and was given ampicillin for GBS prophylaxis. She was given pitocin for augmentation. She was given an epidural for anesthesia. She had artificial rupture of membranes with clear fluid. She progressed to complete and began pushing. On 11/30/2017 she had a normal vaginal delivery of a viable infant. Apgars of 9 & 9. Her course was uneventful. Her pain was well controlled and she had minimal lochia. She was ambulating, tolerating a regular diet and voiding normally. She was bottle feeding. She was afebrile and her hematocrit was 33.4 on admission. She desired to be discharged home on the morning of PPD #1. Her blood type is O+. She had several mildly elevated blood pressures into the 120s to 130s/70s to 90s without symptoms of preeclampsia. Recommended for patient to have blood pressure check within 1 week after discharge. - Patient Instructions Diet: Regular Diet as Tolerated Activity: As Tolerated Activity, Other: Nothing in the vagina for 6 weeks Driving: May Drive Today Showering/Bathing: May Shower, No Tub Bathing/Swimming (for 1 week) Notify Provider of: Fever, Increased Pain, Swelling and Redness, Drainage, Nausea and/or Vomiting - Discharge Plan Home Medications: Home Meds Vits #93/Iron Fum/FA [ Formula Tablet] 11/30/17 [History] Sertraline [Zoloft] 50 mg PO BEDTIME 11/30/17 [History] Acetaminophen [Tylenol] 650 mg PO Q6H PRN tablet 12/01/17 [Rx] Benzocaine/Menthol [Dermoplast Pain Relief [place]] 1 spray TOP ASDIRECTED PRN canister 12/01/17 [Rx] Docusate Sodium [Colace] 100 mg PO BID PRN cap 12/01/17 [Rx] Ibuprofen [IJD: Ibuprofen] 600 mg PO Q6H PRN tablet 12/01/17 [Rx] Lanolin [Lansinoh HPA] 1 applic TOP ASDIRECTED PRN tube 12/01/17 [Rx] Patient Handouts: Home Care Instructions for Mom, Vaginal Delivery, Care After , Care of a Perineal Tear Referrals: Kelsi Rodriguez MD [Primary Care Provider] - (Follow-up for blood pressure check in the clinic this week and for 6 week visit or earlier as needed.) - Discharge Summary/Plan Comment DC Time >30 min.: No - Patient Data Vitals - Most Recent: Last Vital Signs Temp 36.7 C 12/01/17 04:00 Pulse 88 12/01/17 04:00 Resp 14 12/01/17 04:00 BP 133/93 H 12/01/17 04:00 Pulse Ox 98 12/01/17 04:00 Weight - Most Recent: 74.253 kg I&O - Last 24 hours: Intake & Output 11/30/17 12/01/17 12/01/17 22:59 06:59 14:59 Intake Total 1870 Balance 1870 Med Orders - Current: Current Medications Acetaminophen (Tylenol) 650 mg PO Q4H PRN PRN Reason: mild pain or fever Benzocaine/Menthol (Dermoplast Pain Relief [place]) 0 gm TOP ASDIRECTED PRN PRN Reason: Perineal Comfort Measure Last Admin: 11/30/17 16:31 Dose: 1 applic Docusate Sodium (Colace) 100 mg PO BID PRN PRN Reason: Constipation Emollient Ointment (Lansinoh Hpa) 0 gm TOP ASDIRECTED PRN PRN Reason: Sore Nipples Ibuprofen (Motrin) 600 mg PO Q6H PRN PRN Reason: Mild pain or fever Last Admin: 12/01/17 04:47 Dose: 600 mg Sertraline HCl (Zoloft) 50 mg PO BEDTIME MORALES Last Admin: 11/30/17 21:54 Dose: 50 mg Witch Arelis (Tucks) 1 pad TOP ASDIRECTED PRN PRN Reason: Hemorrhoid pain Last Admin: 11/30/17 16:31 Dose: 1 applic Discontinued Medications Ammonia (Aromatic Spirit) (Ammonia Aromatic Inhalant) Confirm Administered Dose 1 ampule .ROUTE .STK-MED ONE Stop: 11/30/17 14:49 Last Admin: 11/30/17 16:38 Dose: Not Given Diphenhydramine HCl (Benadryl) 25 mg IVPUSH Q6H PRN PRN Reason: pruritis Ephedrine Sulfate (Ephedrine Sulfate) 5 mg IVPUSH ASDIRECTED PRN PRN Reason: Hypotension Fentanyl (Sublimaze) 100 mcg EPIDUR Q3H PRN PRN Reason: Pain Last Admin: 11/30/17 12:11 Dose: 100 mcg Fentanyl/Bupivacaine HCl (Fentanyl/Bupivacaine/Ns 2 Mcg-0.125% 100 Ml) 100 ml EPIDUR ASDIRECTED MORALES Last Admin: 11/30/17 12:12 Dose: 100 ml Lactated Ringer's (Ringers, Lactated) Confirm Administered Dose 1,000 mls @ as directed .ROUTE .STK-MED ONE Stop: 11/30/17 07:33 Last Admin: 11/30/17 07:50 Dose: Not Given Ampicillin Sodium 2 gm/ Sodium (Chloride) 100 mls @ 200 mls/hr IV ONETIME ONE Stop: 11/30/17 08:02 Last Admin: 11/30/17 07:38 Dose: 200 mls/hr Ampicillin Sodium 1 gm/ Sodium (Chloride) 100 mls @ 200 mls/hr IV Q4H MORALES Last Admin: 11/30/17 16:38 Dose: Not Given Lactated Ringer's (Ringers, Lactated) 1,000 mls @ 40 mls/hr IV ASDIRECTED MORALES Last Admin: 11/30/17 12:38 Dose: 40 mls/hr Oxytocin/Lactated Ringer's (Pitocin In Lr 10 Units/1,000 Ml) 10 unit in 1,000 mls @ 12 mls/hr IV TITRATE MORALES; 2 MUNITS/MIN PRN Reason: Protocol Last Titration: 11/30/17 14:51 Dose: 0 munits/min, 0 mls/hr Oxytocin/Lactated Ringer's (Pitocin In Lr 10 Units/1,000 Ml) 10 unit in 1,000 mls @ 500 mls/hr IV .CONTINUOUS MORALES Nalbuphine HCl (Nubain) 10 mg IVPUSH Q2H PRN PRN Reason: Pain (moderate 4-6) Ondansetron HCl (Zofran) 4 mg IVPUSH Q4H PRN PRN Reason: Nausea/Vomiting Last Admin: 11/30/17 14:10 Dose: 4 mg Sodium Chloride (Saline Flush) 10 ml FLUSH ASDIRECTED PRN PRN Reason: Keep Vein Open *Q Meaningful Use (DIS) - VTE *Q VTE Criteria *Q: - Stroke *Q Stroke Criteria *Q: - AMI *Q AMI Criteria *Q:
[2017-12-01 11:57] VITALS: BP 129/70
== END 2017-12-01 15:32 | disposition home or self-care (01) | DRG 775 ==
LOC: JD.OB 06:39 → OBSVTOIN 15:07 → JD.OB 15:07
PROVIDERS: ADMIT Obstetrics & Gynecology; ATTEND Obstetrics & Gynecology
PROC: 10E0XZZ Delivery of Products of Conception, External Approach (ICD-10-PCS; principal; 2017-11-30)
PROC: 0KQM0ZZ Repair Perineum Muscle, Open Approach (ICD-10-PCS; 2017-11-30)
PROC: 3E033VJ Introduction of Other Hormone into Peripheral Vein, Percutaneous Approach (ICD-10-PCS; 2017-11-30)
PROC: 10907ZC Drainage of Amniotic Fluid, Therapeutic from Products of Conception, Via Natural or Artificial Opening (ICD-10-PCS; 2017-11-30)
PROC: 00HU33Z Insertion of Infusion Device into Spinal Canal, Percutaneous Approach (ICD-10-PCS; 2017-11-30)
PROC: 3E0R3BZ Introduction of Anesthetic Agent into Spinal Canal, Percutaneous Approach (ICD-10-PCS; 2017-11-30)
DX: O99.344 Other mental disorders complicating childbirth (principal); F41.8 Other specified anxiety disorders; O99.824 Streptococcus B carrier state complicating childbirth; O70.1 Second degree perineal laceration during delivery; Z3A.39 39 weeks gestation of pregnancy; Z37.0 Single live birth; Z88.8 Allergy status to other drugs, medicaments and biological substances; Z79.899 Other long term (current) drug therapy
CPT/HCPCS: 36415; 51702; 59300; 59409; 85027; 86850; 86900; 86901; A9270-GY; J0290; J2405; J2590; J3010; J7030; J7120